=== PATIENT | male | born 1990 ===

== ENCOUNTER 2018-08-01 08:51 | Emergency (ER) | payer OTHER ==
[2018-08-01 08:56] VITALS: BMI 23.6
[2018-08-01 08:59] VITALS: RESP 20
[2018-08-01] MEDS ORDERED: Sodium Chloride 0.9% 1,000 ML IV STA (09:57)
--- NOTE | 2018-08-01 10:00 | ED PDOC ---
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 denies: RLQ, LLQ Quality Of Discomfort: Burning Associated Symptoms: Chills, Nausea, Vomiting, Diarrhea, Loss Of Appetite. denies: Fever Exacerbating Factors: None Alleviating Factors: None Additional Complaint(s): 27yo male c/o upper abdominal burning after several episodes of nonbloody vomiting and diarrhea. Denies lower abdominal pain, no RLQ or LLQ discomfort. Denies fever but feels chills. Denies headache, sore throat, cough, urinary symptoms or rash. No sick contacts. Past Medical History Reviewed: Historical Data, Nursing Documentation, Vital Signs Vital Signs: Last Vital Signs Temp 97.9 F 08/01/18 08:56 Pulse 78 08/01/18 08:56 Resp 20 08/01/18 08:56 BP 119/79 08/01/18 08:56 Pulse Ox 98 08/01/18 08:56 - Medical History PMH: Gastritis Denies: Chronic Kidney Disease - Surgical History Surgical History: No Surg Hx - Family History Family History: States: Unknown Family Hx - Living Arrangements Living Arrangements: With Family - Social History Current smoker - smoking cessation education provided: No - Home Medications Home Medications: Ambulatory Orders Medication Instructions Recorded Famotidine [Pepcid] 20 mg PO Q12 #20 tab 09/29/14 Ondansetron [Zofran] 4 mg PO Q8H #10 tab 09/29/14 Ondansetron ODT [Zofran ODT] 4 mg PO Q6 PRN #10 odt 08/01/18 Ranitidine HCl [Zantac] 150 mg PO BID #20 tablet 08/01/18 - Allergies Allergies/Adverse Reactions: Allergies Allergy/AdvReac Type Severity Reaction Status Date / Time No Known Allergies Allergy Verified 09/29/14 05:16 Review of Systems ROS Statement: Except As Marked, All Systems Reviewed And Found Negative Constitutional: Positive for: Chills. Negative for: Fever Eyes: Negative for: Vision Change ENT: Negative for: Throat Pain Cardiovascular: Negative for: Chest Pain Respiratory: Negative for: Shortness of Breath Gastrointestinal: Positive for: Nausea, Vomiting, Abdominal Pain, Diarrhea. Negative for: Constipation, Melena, Hematochezia, Hematemesis Genitourinary Male: Negative for: Dysuria Musculoskeletal: Negative for: Neck Pain Skin: Negative for: Rash, Lesions Neurological: Negative for: Weakness, Headache, Dizziness Psych: Negative for: Suicidal ideation Physical Exam - Reviewed Nursing Documentation Reviewed: Yes Vital Signs Reviewed: Yes - Physical Exam Appears: Positive for: Well, Non-toxic, No Acute Distress Head Exam: Positive for: ATRAUMATIC, NORMAL INSPECTION, NORMOCEPHALIC Skin: Positive for: Normal Color, Warm, DRY Eye Exam: Positive for: EOMI, Normal appearance, PERRL ENT: Positive for: Normal ENT Inspection Neck: Positive for: Normal, Painless ROM Cardiovascular/Chest: Positive for: Regular Rate, Rhythm Respiratory: Positive for: CNT, Normal Breath Sounds Gastrointestinal/Abdominal: Positive for: Soft, Other (neg RLQ and LLQ tenderness). Negative for: Tenderness, Guarding Back: Positive for: Normal Inspection Extremity: Positive for: Normal ROM. Negative for: Tenderness Neurologic/Psych: Positive for: Alert, Oriented. Negative for: Motor/Sensory Deficits - Laboratory Results Result Diagrams: 08/01/18 10:30 08/01/18 10:30 - ECG O2 Sat by Pulse Oximetry: 98 Medical Decision Making Medical Decision Making: workup for GI distress w labs, IVF bolus, zofran and pepcid. No lower abd tenderness currently. 1140a labs reviewed and unremarkable re-eval 1145a improved, no vomiting. Denies abd pain and abdomen is nontender. Tolerated PO. Disposition - Clinical Impression Clinical Impression: Abdominal pain - Patient ED Disposition Is Patient to be Admitted: No - Disposition Referrals: [facility] [Outside] Disposition: Routine/Home Disposition Time: 11:45 Condition: STABLE Additional Instructions: Return to ER for any new or worsening symptoms. Take medications as directed. Prescriptions: Ondansetron ODT [Zofran ODT] 4 mg PO Q6 PRN #10 odt PRN Reason: Nausea/Vomiting Ranitidine HCl [Zantac] 150 mg PO BID #20 tablet Instructions: Nausea and Vomiting, Adult (DC), Stomach Ache and Stomach Upset Forms: Adyen (Samoan)
[2018-08-01 11:04] LABS: BASO % 0.2 % (0.0-2.0); EOS # 0.1 K/uL (0.0-0.7); EOS % 1.5 % (0.0-4.0); HEMOGLOBIN 15.5 g/dL (12.0-18.0); LYMPH # 0.8 K/uL (1.0-4.3); LYMPH % 9.6 % (20.0-40.0); MEAN CORPUSCULAR HEMOGLOBIN 29.7 pg (27.0-31.0); MEAN PLATELET VOLUME 7.5 fl (7.2-11.7); MONO # 0.5 K/uL (0.0-0.8); MONO % 5.3 % (0.0-10.0); NEUT # 7.2 K/uL (1.8-7.0); NEUT % 83.4 % (50.0-75.0); PLATELET COUNT 223 K/uL (130-400); RBC 5.21 Mil/uL (4.40-5.90); RED CELL DISTRIBUTION WIDTH 13.8 % (11.5-14.5); WHITE BLOOD COUNT 8.6 K/uL (4.8-10.8)
[2018-08-01 11:06] LABS: ALB/GLOB RATIO 1.4 (1.0-2.1); ALBUMIN 4.7 g/dL (3.5-5.0); ALT/SGPT 34 U/L (21-72); AST/SGOT 39 U/L (17-59); BLOOD UREA NITROGEN 18 mg/dl (9-20); CALCIUM 9.5 mg/dL (8.4-10.2); GFR NON-AFRICAN AMERICAN > 60; LIPASE 35 U/L (23-300)
[2018-08-01 11:09] LABS: SQUAMOUS EPITHIAL < 1 /hpf (0-5); URINE BILIRUBIN NEGATIVE (NEGATIVE); URINE BLOOD NEGATIVE (NEGATIVE); URINE CLARITY CLEAR (Clear); URINE COLOR YELLOW (YELLOW); URINE GLUCOSE (UA) NEG (NEGATIVE); URINE LEUKOCYTE ESTERASE NEG Leu/uL (Negative); URINE PROTEIN NEGATIVE (NEGATIVE); URINE UROBILINOGEN 0.2-1.0 mg/dL (0.2-1.0)
[2018-08-01] MEDS ORDERED: Alum-Mag Hydrox-Simethicone Susp (30 mL) PO ONE (11:52)
[2018-08-01] MEDS ORDERED: Alum-Mag Hydrox-Simethicone Susp (30 mL) ONE (11:56)
[2018-08-01 12:17] LABS: BANDS 1 % (0-2); LYMPHOCYTE 10 % (20-50); MONOCYTE 10 % (0-10); NEUTROPHIL 78 % (42-75); PLATELET ESTIMATE NORMAL (NORMAL); REACTIVE LYMPHOCYTES 1 % (0-0); TOTAL CELLS COUNTED 100
[2018-08-01] MEDS ORDERED: Iohexol 300 100 ML IJ ONE (17:02)
[2018-08-01] MEDS ORDERED: Sodium Chloride 0.9% 50 ML IV ONE (17:02)
--- NOTE | 2018-08-01 17:50 | CT ---
Date of service: 08/01/2018 PROCEDURE: CT Abdomen and Pelvis with contrast HISTORY: Upper abdominal pain and nausea COMPARISON: None available. TECHNIQUE: CT scan of the abdomen and pelvis was performed after administration of intravenous contrast. Oral contrast was not administered. Coronal and sagittal reformatted images were obtained. Contrast dose: 90 mL Omnipaque 300 Radiation dose: Total exam DLP = 244.73 mGy-cm. This CT exam was performed using one or more of the following dose reduction techniques: Automated exposure control, adjustment of the mA and/or kV according to patient size, and/or use of iterative reconstruction technique. FINDINGS: LOWER THORAX: The visualized lungs are clear. LIVER: Normal in size with homogeneous enhancement. Fatty liver. Nonspecific coarse calcifications in the right hepatic lobe. No gross lesion or ductal dilatation. GALLBLADDER AND BILE DUCTS: Well distended. No calcified gallstones, wall thickening or pericholecystic fluid. PANCREAS: Normal in size with homogeneous enhancement. No gross lesion or ductal dilatation. SPLEEN: Normal in size and appearance. ADRENALS: No discrete nodule. KIDNEYS AND URETERS: Normal in size with homogeneous enhancement. No hydronephrosis. No solid mass. VASCULATURE: No aortic aneurysm. BOWEL: Evaluation of the bowel is limited in the absence of oral contrast. The proximal small bowel loops are normal in caliber. There is mild dilatation of fluid-filled mid and distal small bowel loops. There is fluid in the ascending colon. The left hemicolon is decompressed. No bowel dilatation or obstruction. The colon is grossly normal in appearance. No bowel wall thickening or obstruction. APPENDIX: Normal appendix. PERITONEUM: No free fluid. No free air. LYMPH NODES: No enlarged lymph nodes. BLADDER: Partially decompressed. REPRODUCTIVE: The prostate gland is normal in size. BONES: No acute fracture. Within normal limits for the patient's age. OTHER FINDINGS: None. IMPRESSION: Mild dilatation of fluid-filled mid and distal small bowel loops and fluid in the colon may represent nonspecific acute infectious/inflammatory enterocolitis. No bowel obstruction. Fatty liver.
[2018-08-01 18:33] VITALS: BP 133/72; PULSE 75; TEMP 98.5
[2018-08-15 12:11] VITALS: O2SAT 98
== END 2018-08-01 18:34 | disposition home or self-care (01) ==
LOC: H.ER 08:51
DX: R10.13 Epigastric pain (principal)
CPT/HCPCS: 74177; 80053; 81003; 83690; 85025; 87086; 96360; 99284; J2405; J7030; Q9967